=== PATIENT | female | born 1990 | race Caucasian/White ===

== ENCOUNTER → 2021-09-14 | Outpatient (CLI) | payer OTHER ==
[2021-09-14 14:44] LABS: HEMOGLOBIN 13.7 gm/dl (12.3-15.3); RED BLOOD COUNT 4.52 M/UL (4.00-5.10)
[2021-09-14 15:06] LABS: BUN/CREATININE RATIO 10 (0-10)
[2021-09-15 09:14] LABS: HCV AB <0.1 (0.0-0.9)
[2021-09-15 11:14] LABS: HBSAG SCREEN Negative (Negative); HEP B CORE AB, TOT Negative (Negative)
[2021-09-15 12:14] LABS: RHEUMATOID ARTHRITIS FACTOR 30.8 IU/mL (0.0-13.9)
== END ==
LOC: LAB 12:42
PROVIDERS: Nurse Practitioner Family
DX: Z11.59 Encounter for screening for other viral diseases (principal); M25.50 Pain in unspecified joint; M79.10 Myalgia, unspecified site; E55.9 Vitamin D deficiency, unspecified; M79.641 Pain in right hand; M79.642 Pain in left hand; D89.9 Disorder involving the immune mechanism, unspecified; R76.8 Other specified abnormal immunological findings in serum; Z79.899 Other long term (current) drug therapy
CPT/HCPCS: 36415; 73130; 80053; 82550; 82728; 82746; 83520; 84439; 84443; 85025; 85652; 86140; 86200; 86431; 86704; 86803; 87340